=== PATIENT | female | born 1945 | race American Indian/Alaskan Native ===

== ENCOUNTER 2018-01-07 08:38 | Emergency (ER) | payer MEDICARE, BC ==
--- NOTE | 2018-01-07 09:56 | EDM.PDOC ---
ED HPI GENERAL MEDICAL PROBLEM - General Chief Complaint: General Stated Complaint: FACIAL NUMBNESS Time Seen by Provider: 01/07/18 09:35 Source of Information: Reports: Patient History Limitations: Reports: No Limitations - History of Present Illness INITIAL COMMENTS - FREE TEXT/NARRATIVE: 72-year-old female was brushing her teeth yesterday morning and noticed her top lip felt funny. Since that time she has developed some progressive numbness, slight weakness of the left side of the mouth and slight periorbital weakness when she closes her eyes. She is concerned she might be getting John's palsy because her brother had it and her mother had it. She has no other symptoms, no fever, tick bites, rashes, joint pains, headache, and no peripheral symptoms whatsoever. She called the clinic and they told her to call the ambulance or go directly to the emergency room so her brought her in. Onset: Gradual (Over the last 48 hours) - Related Data Allergies Allergy/AdvReac Type Severity Reaction Status Date / Time adhesive tape Allergy Rash Verified 01/07/18 09:22 amoxicillin Allergy Diarrhea Verified 01/07/18 09:22 Home Meds: Home Meds Calcium Carbonate 600 mg PO DAILY 12/17/15 [History] Evening [place] Oil [Evening [place]] 1 tab PO DAILY 12/17/15 [History] Naproxen 500 mg PO BID PRN 12/17/15 [History] Naproxen Sodium 220 mg PO DAILY PRN 12/17/15 [History] Vit #68/Iron/FA#6/DHA [Prenate Enhance Softgel] 1 tab PO DAILY [History] Triamcinolone Acetonide [Kenalog 0.1% Crm] 1 applic TOP TID 12/17/15 [History] Vitamin E 400 mg PO DAILY 12/17/15 [History] Past Medical History Gastrointestinal History: Reports: None Musculoskeletal History: Reports: Arthritis Psychiatric History: Reports: Depression - Infectious Disease History Infectious Disease History: Reports: Chicken Pox, Measles, Mumps - Past Surgical History Head Surgeries/Procedures: Reports: None GI Surgical History: Reports: Cholecystectomy Musculoskeletal Surgical History: Reports: None Dermatological Surgical History: Reports: None Social & Family History - Family History Family Medical History: Noncontributory - Tobacco Use Smoking Status *Q: Former Smoker Years of Tobacco use: 30 Packs/Tins Daily: 1 Used Tobacco, but Quit: Yes Month/Year Tobacco Last Used: august Second Hand Smoke Exposure: No - Caffeine Use Caffeine Use: Reports: Coffee, Tea - Recreational Drug Use Recreational Drug Use: No ED ROS GENERAL - Review of Systems Review Of Systems: See Below Constitutional: Denies: Fever, Chills Respiratory: Denies: No Symptoms, Shortness of Breath Cardiovascular: Denies: Chest Pain GI/Abdominal: Denies: Abdominal Pain : Reports: No Symptoms Skin: Denies: Rash Neurological: Reports: Paresthesia (Left face). Denies: Headache ED EXAM, GENERAL - Physical Exam Exam: See Below Exam Limited By: No Limitations General Appearance: Alert, No Apparent Distress Eye Exam: Bilateral Eye: EOMI, PERRL, Other (She does have a slight weakness to closing her left eye) Throat/Mouth: Other (Slight weakness of the periorbital and perioral areas of the face on the left.) Head: Atraumatic Respiratory/Chest: No Respiratory Distress Extremities: Normal Inspection Neurological: Alert, Other (Numbness to palpation on the upper left lip and left perioral area of the face) Course - Vital Signs Last Recorded V/S: Last Vital Signs Temp 96.3 F 01/07/18 09:21 Pulse 71 01/07/18 09:21 Resp 18 01/07/18 09:21 BP 167/81 H 01/07/18 09:21 Pulse Ox 96 01/07/18 09:21 - Re-Assessments/Exams Free Text/Narrative Re-Assessment/Exam: 01/07/18 09:55 This patient is displaying classic early John's palsy. She'll be placed on 60 mg of prednisone daily for the next 5 days, and return within the next 24-48 hours if developing any other symptoms which was discussed. She'll also consider rechecking in 3-4 days if not improving satisfactorily. Departure - Departure Time of Disposition: 10:11 Disposition: Home, Self-Care 01 Condition: Good Clinical Impression: John's palsy - Discharge Information Instructions: John Palsy, Adult Referrals: Veda Ortiz PA [Primary Care Provider] - Forms: ED Department Discharge Care Plan Goals: Take 6 pills of prednisone with your first meal for 5 consecutive days. Recheck in 2-3 days if not improving satisfactorily or return sooner if worsening. Otherwise continue regular activity and diet.
== END 2018-01-07 10:13 | disposition home or self-care (01) ==
LOC: JP.ED 08:38
DX: G51.0 Bell's palsy (principal); F32.9 Major depressive disorder, single episode, unspecified; M19.90 Unspecified osteoarthritis, unspecified site; Z87.891 Personal history of nicotine dependence; Z79.899 Other long term (current) drug therapy; Z88.1 Allergy status to other antibiotic agents; Z91.09 Other allergy status, other than to drugs and biological substances
CPT/HCPCS: 99284

== ENCOUNTER 2023-05-15 06:56 | Emergency (ER) | payer MEDICARE, BC | END 2023-05-15 07:51 | disposition home or self-care (01) | LOC: JP.ED 06:56 → EEVIPCON 06:56 → JP.ED 07:51 | DX: L50.1 Idiopathic urticaria (principal); Z87.891 Personal history of nicotine dependence; Z88.0 Allergy status to penicillin; Z91.048 Other nonmedicinal substance allergy status | CPT/HCPCS: 99282 ==